=== PATIENT | female | born 1970 | race Caucasian/White ===

== ENCOUNTER 2020-09-12 09:05 | Outpatient (CLI) | payer MEDICARE, SELFPAY ==
--- NOTE | ~2020-09-12 | MMUS_ITS ---
EXAMINATION: MM diagnostic tamar BI w sujit, US breast LT complete HISTORY: Palpable left breast abnormality with pain. TECHNIQUE: Additional 3-D tomosynthesis images of the breasts were performed and synthetic 2-D images were generated. CAD analysis was submitted and interpreted. High resolution complete left breast ult rasound was performed. COMPARISON: None BREAST PARENCHYMAL COMPOSITION: The breasts are extremely dense, which lowers the sensitivity of mamm ography. FINDINGS: MAMMOGRAPHIC FINDINGS: There is a large poorly circumscribed mass measuring up to 4.2 cm in the upper outer quadrant of the left breast. There are probable additional masses in the upper outer quadrant which are obscured by d ense fibroglandular tissue. There is a mass in the left axillary region on MLO view which is partiall y obscured only partially included. No mammographic evidence for malignancy in the right breast. ULTRASOUND: Complete right breast ultrasound: There are multiple irregular shaped hypoechoic masses in the left b reast with areas of posterior acoustic shadowing. The largest measures 4.3 x 2.5 x 4.3 cm located at 12:00, 1 cm from the nipple. There are multiple hypoechoic and cystic masses of the right axilla as w ell. These contain low-level internal echoes with areas of posterior enhancement these may represent pathologic lymph nodes with effacement of the fatty hilum or complicated cyst. IMPRESSION: 1. Multiple irregular shaped solid left breast masses as well as axillary masses. 2. Recommend ultrasound-guided biopsy of dominant right breast mass at 12:00, 1 cm from the nipple as well as employment representative axillary masses. BI-RADS category 4, suspicious findings. Reviewed, dictated and finalized at location A. FIELD ROUSTABOUT IMPRESSION: 1. Multiple irregular shaped solid left breast masses as well as axillary pablo s. 2. Recommend ultrasound-guided biopsy of dominant right breast mass at 12:00, 1 cm from the nipple as well as employment representative axillary masses. BI-RADS category 4, suspicious findings.
== END 2020-09-12 09:06 | disposition home or self-care (01) ==
LOC: CHSIMG 09:10
PROVIDERS: PCP Family Medicine; Visit Provider Family Medicine
DX: N63.15 Unspecified lump in the right breast, overlapping quadrants (principal)
CPT/HCPCS: 76641; 77062; 77066; G0279

== ENCOUNTER 2020-09-18 08:56 | Outpatient (CLI) | payer MEDICARE, SELFPAY ==
--- NOTE | ~2020-09-18 | MMUS_ITS ---
EXAMINATION: US breast biopsy LT w image, MM post biopsy diagnostic LT DATE: 09/18/2020 14:44 (accession [id number]), 09/18/2020 14:38 (accession [id number]) INDICATION: Left breast mass and left axillary lymphadenopathy Ultrasound-guided core biopsy is reque sted to evaluate for malignancy. TECHNIQUE AND FINDINGS: The risks and potential benefits of the procedure were discussed with the patient including bleeding and infection. A time out was performed. The skin of the left breast was prepared and draped in usual sterile fashion. 1% lidocaine was used for superficial anesthesia. 1% lidocaine with epinephrine was used for deep anesthesia. A vacuum-assisted biopsy gun needle was advanced through to the outer edge of the left breast mass fr om an inferolateral approach utilizing sonographic guidance. A total of three tissue core samples wer e obtained through the lesion. A tissue marker clip was then placed at the biopsy site. Hemostasis wa s achieved. The left axilla was then prepared and draped in usual sterile fashion. 1% lidocaine was u sed for superficial anesthesia. 1% lidocaine with epinephrine was used for deep anesthesia. An 18-gau ge core biopsy was obtained through a left axillary lymph node from an inferior approach. A tissue ma rker clip was then placed at the biopsy site. Hemostasis was achieved. A sterile bandage was applied to both biopsy sites. The patient tolerated procedure well and there was no evidence of immediate complication. The patient was given verbal instructions to return to the Emergency Department in the event of severe breast pa in or rapid breast enlargement. A two view left breast mammogram was obtained to document tissue merlyn er clip placement. IMPRESSION: 1. Successful ultrasound-guided vacuum-assisted biopsy of left breast mass and left axillary lymph no de core biopsy with tissue marker placement. Reviewed, dictated and finalized at location A. H MIXER IMPRESSION: 1. Successful ultrasound-guided vacuum-assisted biopsy of left breast mass and left axillary lymph node core biopsy with tissue marker placement.
--- NOTE | ~2020-09-18 | US_ITS ---
EXAMINATION: US breast biopsy LT w image, MM post biopsy diagnostic LT DATE: 09/18/2020 14:44 (accession [id number]), 09/18/2020 14:38 (accession [id number]) INDICATION: Left breast mass and left axillary lymphadenopathy Ultrasound-guided core biopsy is reque sted to evaluate for malignancy. TECHNIQUE AND FINDINGS: The risks and potential benefits of the procedure were discussed with the patient including bleeding and infection. A time out was performed. The skin of the left breast was prepared and draped in usual sterile fashion. 1% lidocaine was used for superficial anesthesia. 1% lidocaine with epinephrine was used for deep anesthesia. A vacuum-assisted biopsy gun needle was advanced through to the outer edge of the left breast mass fr om an inferolateral approach utilizing sonographic guidance. A total of three tissue core samples wer e obtained through the lesion. A tissue marker clip was then placed at the biopsy site. Hemostasis wa s achieved. The left axilla was then prepared and draped in usual sterile fashion. 1% lidocaine was u sed for superficial anesthesia. 1% lidocaine with epinephrine was used for deep anesthesia. An 18-gau ge core biopsy was obtained through a left axillary lymph node from an inferior approach. A tissue ma rker clip was then placed at the biopsy site. Hemostasis was achieved. A sterile bandage was applied to both biopsy sites. The patient tolerated procedure well and there was no evidence of immediate complication. The patient was given verbal instructions to return to the Emergency Department in the event of severe breast pa in or rapid breast enlargement. A two view left breast mammogram was obtained to document tissue merlyn er clip placement. IMPRESSION: 1. Successful ultrasound-guided vacuum-assisted biopsy of left breast mass and left axillary lymph no de core biopsy with tissue marker placement. [employer] ADDENDUM #1 Pathology results: Left breast: Invasive carcinoma, favor lobular Left axillary lymph node: Metastatic adenocarcinoma Imaging findings are concordant. Reviewed, dictated and finalized at location A. [employer] IMPRESSION: 1. Successful ultrasound-guided vacuum-assisted biopsy of left breast mass and left axillary lymph node core biopsy with tissue marker placement.
== END 2020-09-18 08:57 | disposition home or self-care (01) ==
PROVIDERS: PCP Family Medicine; Visit Provider Family Medicine
DX: C50.812 Malignant neoplasm of overlapping sites of left female breast (principal); C77.3 Secondary and unspecified malignant neoplasm of axilla and upper limb lymph nodes; Z17.1 Estrogen receptor negative status [ER-]
CPT/HCPCS: 19083; 19084; 77065; 88305; 88342; 88360; A4648

== ENCOUNTER 2021-02-03 13:33 | Outpatient (CLI) | payer MEDICARE, SELFPAY ==
[2021-02-03 13:47] LABS: Hematocrit 26.4 % (35.0-49.0); Hemoglobin 8.8 g/dL (12.0-15.0); Mean Corpuscular HGB Conc 33.3 g/dL (32.0-36.0); Mean Corpuscular Hemoglobin 32.1 pg (27.0-31.0); Mean Corpuscular Volume 96.4 fL (78.0-102.0); Mean Platelet Volume 7.7 fl (9.2-11.8); Platelet Count Result 259 K/mm3 (150-420); Red Blood Count 2.74 M/mm3 (4.20-5.40); Red Cell Distribution Width 14.6 % (11.6-14.4)
[2021-02-03 14:25] LABS: Band Neutrophils Percent 0 % (0-6); Lymphocytes Absolute Manual 1.32 K/mm3 (1.1-4.5); Lymphocytes Percent Manual 66 % (18-44); Neutrophils Percent Manual 20 % (46-73); Total Cells Counted 100
[2021-02-03 14:26] LABS: Hypochromasia 1+ (NORMAL); Monocytes Absolute Manual 0.18 K/mm3 (0.1-0.90); Monocytes Percent Manual 9 % (3-9); Myelocytes Percent 1 %; Platelet Estimate Adequate (Adequate)
== END 2021-02-03 13:34 | disposition home or self-care (01) ==
LOC: CHSLAB 13:38
PROVIDERS: PCP Family Medicine
DX: C50.912 Malignant neoplasm of unspecified site of left female breast (principal); D70.1 Agranulocytosis secondary to cancer chemotherapy; T45.1X5A Adverse effect of antineoplastic and immunosuppressive drugs, initial encounter
CPT/HCPCS: 36415; 85025

== ENCOUNTER 2021-05-06 16:14 | Emergency (ER) | payer MEDICARE, SELFPAY ==
--- NOTE | ~2021-05-06 | XR_ITS ---
EXAMINATION: XR chest 1V portable DATE: 05/06/2021 18:21 INDICATION: Left lower rib pain with shortness of breath and weakness TECHNIQUE: frontal view of the chest was obtained. COMPARISON: Chest radiograph and CT dated 04/30/2019 FINDINGS: The lungs remain clear with no focal airspace opacities, pulmonary edema, pleural effusion or pneumot horax. Right subclavian central venous port catheter with distal tip at the caudal superior vena cava . Visualized bones and soft tissues are unremarkable. IMPRESSION: 1. No acute cardiopulmonary disease. Reviewed, dictated and finalized at location A.
[2021-05-06 16:28] VITALS: BP 158/84; PULSE 61; RESP 20; TEMP 36.8; O2SAT 96
[2021-05-06 17:28] LABS: Basophils Absolute Auto 0.05 K/mm3 (0.00-0.10); Basophils Percent Auto 0.6 % (0.0-1.0); Eosinophils Absolute Auto 0.19 K/mm3 (0.02-0.50); Eosinophils Percent Auto 2.1 % (1.0-6.0); Hematocrit 36.1 % (35.0-49.0); Hemoglobin 11.8 g/dL (12.0-15.0); Immature Granulocyte Absolute 0.07 K/mm3 (0.00-0.00); Immature Granulocyte Percent A 0.8 % (0.0-0.0); Mean Corpuscular HGB Conc 32.7 g/dL (32.0-36.0); Mean Corpuscular Hemoglobin 33.1 pg (27.0-31.0); Mean Corpuscular Volume 101.1 fL (78.0-102.0); Mean Platelet Volume 8.5 fl (9.2-11.8); Monocytes Absolute Auto 0.78 K/mm3 (0.10-0.90); Monocytes Percent Auto 8.7 % (2.0-11.0); Neutrophils Absolute Auto 6.2 K/mm3 (1.7-7.2); Neutrophils Percent Auto 68.8 % (50.0-70.0); Platelet Count Result 286 K/mm3 (150-420); Red Blood Count 3.57 M/mm3 (4.20-5.40); Red Cell Distribution Width 14.3 % (11.6-14.4)
[2021-05-06] MEDS: SODIUM CHLORIDE 0.9% IV 1,000 ML 999 ML IV CONT (17:36)
[2021-05-06] MEDS: PANTOPRAZOLE SODIUM IV 40 MG VIAL IV PUSH (17:37)
[2021-05-06] MEDS: ONDANSETRON INJ 4 MG/2 ML VIAL IV PUSH (17:37)
[2021-05-06 17:45] LABS: Alanine Aminotransferase 42 U/L (14-59); Albumin Level 3.3 g/dL (3.4-5.0); Alkaline Phosphatase 134 U/L (46-116); Anion Gap 18 mmol/L (8-16); Aspartate Amino Transferase 40 U/L (15-37); Bilirubin,Total 0.3 mg/dL (0.00-1.00); Blood Urea Nitrogen 14 mg/dL (7-18); Calcium 8.9 mg/dL (8.5-10.1); Carbon Dioxide 20 mmol/L (21-32); Chloride 101 mmol/L (98-108); Estimated CRCL calculation 59 ml/min; Estimated Glomerular Filt Rate > 60; Glucose 78 mg/dL (70-99); Lipase 51 U/L (73-393); Osmolality Calculated 287 mOsm/kg (285-295); Potassium 4.1 mmol/L (3.5-5.1); Sodium 139 mmol/L (136-145); Total Protein 7.2 g/dL (6.4-8.2)
[2021-05-06] MEDS: HYDROcodone/acetaminophen (*CRX) 5-325 MG TABLET 1 TAB PO (18:10)
[2021-05-06 19:04] LABS: Add Urine Microscopic? YES; Appearance Urine Clear (Clear); Bilirubin Urine 2+ (Negative); Blood Urine Negative (Negative); Color Urine Light Yellow (Yellow); Glucose Urine UA Negative (Negative); Ketones Urine 3+ (Negative); Leukocyte Esterase Ur Negative (Negative); Nitrate Urine Negative (Negative); Protein Urine Trace (Negative); Specific Grav Ur >= 1.030 (1.010-1.020); Urobilinogen Urine 0.2 mg/dL (0.2-1.0); pH Urine 5.5 (5.0-8.0)
[2021-05-06 19:09] LABS: Amorphous Sediment Urine Few; Bacteria Urine Trace /hpf; Mucus Urine Few /lpf; RBC Urine 0-2 /hpf (0-2); Squamous Epithelial Cell Urine Few /hpf (Few); WBC Urine 0-3 /hpf (0-3)
[2021-05-06] MEDS: MECLIZINE HCL 25 MG TABLET (19:09)
--- NOTE | 2021-05-06 19:29 | ED.NAVMDI ---
HPI - Nausea/Vomiting/Diarrhea General Chief complaint: Nausea/Vomiting/Diarrhea Stated complaint: throwing up, headache Time Seen by Provider: 05/06/21 16:18 Source: patient and RN notes reviewed Mode of arrival: ambulatory Limitations: no limitations History of Present Illness MD elicited complaint: nausea and vomiting Onset (ago): hour(s) (6) Description of vomiting: food contents Description of diarrhea: watery Associated nausea: Yes Associated abdominal pain: Yes Location of pain: diffuse Radiation: does not radiate Severity: mild Pain scale (0-10): 4 Quality: cramping, aching and dull Exacerbating factors: none Relieving factors: none Associated symptoms: weakness Related Data Home Medications Medication Instructions Recorded Confirmed albuterol sulfate 2 puff INHALATION Q4H PRN 05/06/21 05/06/21 carisoprodol [Soma] 350 mg PO TID 05/06/21 05/06/21 clonazepam 1 mg PO BID 05/06/21 05/06/21 fluoxetine [Prozac] 40 mg PO DAILY 05/06/21 05/06/21 hydrocodone-acetaminophen 1 tablet PO Q6H PRN 05/06/21 05/06/21 pregabalin 75 mg PO BID 05/06/21 05/06/21 prochlorperazine maleate 10 mg PO Q6H PRN 05/06/21 05/06/21 [Compazine] tiotropium bromide [Spiriva with 1 cap INHALATION DAILY 05/06/21 05/06/21 HandiHaler] trazodone 100 mg PO HS 05/06/21 05/06/21 Allergies Allergy/AdvReac Type Severity Reaction Status Date / Time morphine Allergy Unknown Verified 05/06/21 17:27 naproxen [From Naprosyn] Allergy Unknown Verified 05/06/21 17:27 Review of Systems Review of Systems: All systems reviewed & are unremarkable except as noted in HPI and below PMFSH Past Medical History Medical History Abdominal pain Exam Const: General: no acute distress and alert Nutritional Appearance: thin Orientation/consciousness: patient oriented x3 HENMT: Head: normal to inspection Ears: external ears normal and TM's normal bilaterally General nose exam: Normal external nose present and Normal nares present Mouth: Yes moist mucous membranes Eyes: Cornea: corneas normal Pupils: Equal, round and reactive pupils present EOM: EOMs intact bilaterally Chest: Chest palpation & inspection: normal inspection of the chest Resp: Effort & Inspection: normal respiratory effort Auscultation: clear to auscultation bilaterally Cardio: Rate: regular rate Rhythm: regular rhythm GI: GI Palp: Yes Soft to palpation and No Tenderness to palpation present (GI) Percussion: Yes normal to percussion : General: Yes no CVA tenderness Back/Spine/Pelvis: Back: no CVA tenderness Skin: General skin exam: normal color Rashes: no rashes Neuro: General: patient oriented x3, moves all extremities, no meningeal signs, no focal motor deficits and CN's II-XI intact bilaterally Extrem: General: normal to inspection and no pedal edema Psych: Appearance: grossly normal Mental Status: mental status grossly normal Affect: normal affect Thought content: Yes Normal thought content present Course Course Emergency Course: Pt had no acute GI loss in the ED. Post w/u and Tx pt for home. Reevaluation(s) Reevaluation #1: pt was stable in the ED. Date: 05/06/21 Time: 17:23 Vital Signs Vital signs: Vital Signs Temperature 36.8 C 05/06/21 16:28 Pulse Rate 61 05/06/21 16:28 Respiratory Rate 20 05/06/21 16:28 Blood Pressure 158/84 H 05/06/21 16:28 Pulse Oximetry 96 05/06/21 16:28 Temperature 37.2 C 05/06/21 20:08 Pulse Rate 76 05/06/21 20:08 Respiratory Rate 20 05/06/21 20:08 Blood Pressure 133/73 05/06/21 20:08 Pulse Oximetry 94 05/06/21 20:08 MDM - Nausea/Vomiting/Diarrhea Differential Diagnosis Differential diagnosis: Likely gastroenteritis and dehydration Medical Records Attestation: I reviewed the patient's medical records. Lab Data Attestation: I reviewed the patient's lab results. Result diagrams: 05/06/21 17:17 05/06/21 17:17
[2021-05-06] MEDS: HEPARIN SODIUM LOCK FLUSH 500 UNITS/5 ML SYRINGE (20:07)
[2021-05-06 20:08] VITALS: BP 133/73; PULSE 76; RESP 20; TEMP 37.2; O2SAT 94
== END 2021-05-06 20:10 | disposition home or self-care (01) ==
PROVIDERS: Emergency Provider Emergency Medicine; PCP Family Medicine
DX: K52.9 Noninfective gastroenteritis and colitis, unspecified (principal); R42 Dizziness and giddiness; N39.0 Urinary tract infection, site not specified
CPT/HCPCS: 36415; 71045; 80053; 81001; 83690; 85025; 96361; 96365; 96375; 99283; 99284; A9270; C9113; J0696; J2405; J7030